=== PATIENT | female | born 1985 | race Hispanic/Latino ===

== ENCOUNTER 2017-05-01 23:14 | Emergency (ER) | payer OTHER ==
[2017-05-01 23:19] VITALS: BP 129/87; PULSE 108; RESP 18; TEMP 98; O2SAT 100
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
== END 2017-05-02 03:08 ==
LOC: H.ER 23:14
DX: F10.129 Alcohol abuse with intoxication, unspecified (principal); S09.90XA Unspecified injury of head, initial encounter; W22.8XXA Striking against or struck by other objects, initial encounter; Y92.89 Other specified places as the place of occurrence of the external cause